=== PATIENT | male | born 1955 | race Caucasian/White ===

== ENCOUNTER 2022-03-16 08:58 | Outpatient (CLI) | payer BC, SELFPAY ==
[2022-03-16 09:45] LABS: Creatinine* 0.8 mg/dL (0.5-1.5); Estimated Glomerular Filt Rate 98 ml/min
--- NOTE | 2022-03-16 10:00 | CRLHL7_ITS ---
For Patients: As a result of the Century Cures Act, medical imaging exams and procedure reports are released immediately into your electronic medical record. You may view this report before your referring provider. If you have questions, please contact your health care provider. INDICATION: Recurrent left inguinal hernia. TECHNIQUE: CT abdomen and pelvis acquired with 99 cc Isovue 370 IV contrast. COMPARISON: CT chest, abdomen, and pelvis 08/14/2021. FINDINGS: Lower chest: Stable 4 mm pulmonary nodule in the peripheral lingula (series 3, image 10). Ground-glass attenuation and mild consolidation in posterior left lower lobe. Liver: Unremarkable. Normal in size and attenuation. No suspicious masses. Gallbladder and bile ducts: Unremarkable. No stones or inflammation. No biliary dilatation. Pancreas: Unremarkable. No mass or inflammation. Spleen: Unremarkable. Normal in size. No masses. Adrenal glands: Unremarkable. No nodules. Kidneys: Re-demonstration of ectopic and mildly dystrophic right kidney. No solid renal mass or hydronephrosis. No stones. Left renal cyst. Bladder is decompressed. GI tract: No colonic wall thickening or pericolonic fat stranding. Colonic diverticulosis with no evidence of acute diverticulitis. Appendix is normal. No small bowel dilation. No free fluid or free air. Vasculature: Aortoiliac atherosclerosis. No aneurysm. Mesenteric arteries are patent. Lymph nodes: No lymphadenopathy. Omentum/Peritoneum/Abdominal Wall: Unremarkable. No sign of mass or infiltration. No free air or significant free fluid. Pelvis: Small fat containing right inguinal hernia. Prostate is mildly enlarged. Left inguinal hernia containing segment of transverse colon. Bones: Unremarkable for age. IMPRESSION: 1. Left inguinal hernia containing short segment of colon. 2. Small fat containing right inguinal hernia. 3. Colonic diverticulosis with no evidence of acute diverticulitis. 4. Re-demonstration of the ectopic right kidney. 5. Mild ground-glass opacity and consolidation in the dependent left lower lobe most likely atelectasis although could represent early infiltrate. 6. Short interval stability in a 4 mm pulmonary nodule in the lingula. Please note that all CT scans at this facility use dose modulation, iterative reconstruction, and/or weight-based dosing when appropriate to reduce radiation dose to as low as reasonably achievable. Dictated by Blaise Gonzalez MD @ 03/16/2022 11:36:31 AM (Electronically Signed)
== END 2022-03-16 08:59 | disposition home or self-care (01) ==
LOC: CT 09:00
PROVIDERS: PCP Family Medicine; Visit Provider Surgery
DX: K40.91 Unilateral inguinal hernia, without obstruction or gangrene, recurrent (principal); K57.30 Diverticulosis of large intestine without perforation or abscess without bleeding; R91.1 Solitary pulmonary nodule
CPT/HCPCS: 36415; 74177; 82565; Q9967

== ENCOUNTER 2022-04-05 06:16 | Day surgery (SDC) | payer BC, SELFPAY ==
[2022-04-05] VITALS (16 sets, daily range): BP systolic 92–134; BP diastolic 66–88; PULSE 54–71; RESP 16–18; TEMP 36.4–36.8; O2SAT 92–97; BMI 24.7
[2022-04-05] MEDS: LACTATED RINGERS 1000 ML 1,000 ML 100 ML IV (06:30)
[2022-04-05] MEDS: SODIUM CHLORIDE 0.9 % (FLUSH) 10 ML SYRINGE IVF (06:56)
[2022-04-05] MEDS: CEFAZOLIN 2 GM INJ IVP (07:36)
[2022-04-05] MEDS: BUPIVACAINE 0.25% 30 ML INJECTION (08:45)
[2022-04-05] MEDS: BUPIVACAINE LIPOSOME 133 MG/10 ML INJ INFILTRATI (08:47)
--- NOTE | 2022-04-05 08:58 | PM.GSPRC ---
Operative Note Date of procedure: 04/05/22 Type of Procedure: 1. Open left inguinal hernia repair with mesh. Procedure Description: After discussing the risks and benefits of the procedure, the patient signed informed consent.? The operative site was marked and the patient was brought to the operating room and placed on the operating table in supine position.? Care was taken to pad the patient's pressure points.?? The patient was then intubated by anesthesia.?? The operative site was then prepped and draped in the usual sterile fashion.? A time-out was then performed. Surgical site was prepped and draped in sterile fashion. An oblique incision was made just above and medial to inguinal ligament through the previously well-healed surgical incision. Subcutaneous tissue was dissected to external obliques. Scar tissue was noted in subcutaneous fat. Small incision was made through the external oblique aponeurosis with scalpel. I then used Metzenbaum scissors to dissect under external obliques and extend my incision. Mosquito clamps were placed on the edges of external oblique exposing the inguinal floor. The left Ilioinguinal nerve was not identified. I then identified the spermatic cord and the hernia sac. I bluntly dissected subcutaneous tissues in order to place [place] drain around the cord structures. Cremasteric fibers were peeled off and dissected off the hernia sac and cord structures. There was evidence of direct inguinal hernia as well as indirect inguinal hernia. The hernia sac was from the spermatic cord bluntly and with cautery. The distal part of the indirect hernia sac was clamped and tied with a Vicryl tie. The proximal part of the hernia sac was then examined from the inside. Sigmoid epiploic fat was incarcerated in the hernia sac. This was reduced. A stitch using 3-0 Vicryl was placed near the base of the hernia sac through the sac and the hernia sac tied off. Hernia sac was then excised and sent to pathology. The cut edge of the hernia sac was then oversewn with 3-0 Vicryl suture. This was then pushed into preperitoneal space through the internal ring. Surgical field was examined for bleeding and hemostasis was achieved with cautery. A Bard mesh plug was inserted through the internal ring and secured to the adjacent tissues with interrupted 0-0 Neurolon sutures. A Bard mesh onlay was modified to make it slightly shorter and then used for hernia repair. The mesh onlay was sutured in place with interrupted 0-0 Neurolon sutures to the conjoint tendon medially and shelving edge laterally, pubic tubercle inferiorly. Simple interrupted sutures were placed using 0-0 Neurolon at the base of internal inguinal ring making it only large enough to fit a tip of one finger through. Spermatic cord was placed back into scrotum. [place] drain was removed. External oblique aponeurosis was closed with a running 3-0 Vicryl. Exparel was injected into subcutaneous tissues and external obliques. Kiley's fascia and subcutaneous tissue was re-approximated with interrupted Vicryl stitches. Skin incision was closed with 4-0 Monocryl subcuticular stitch. Steri strips and sterile dressing were applied over incision. All counts were correct at the end of the case. Patient tolerated this procedure well and was transferred to PACU in stable condition. Findings: Indirect and direct inguinal hernia noted. There was no presence of previous mesh. Implants: Mesh Anesthesia: GETA Surgeon: Aidan Smith MD Estimated blood loss (mL): 10 Condition: stable Disposition: PACU
--- NOTE | 2022-04-05 09:17 | W.ANESCHARGE ---
Anesthesia Charges Start Date/Time Anesthesia Start Date: 04/05/22 Anesthesia Start Time: 07:28 Stop Date/Time Anesthesia Stop Date: 04/05/22 Anesthesia Stop Time: 09:14 Summary Emergency: No
--- NOTE | 2022-04-05 09:32 | W.ANESCHARGE ---
Anesthesia Charges Start Date/Time Anesthesia Start Date: 04/05/22 Anesthesia Start Time: 07:28 Stop Date/Time Anesthesia Stop Date: 04/05/22 Anesthesia Stop Time: 09:14 Summary Emergency: No
[2022-04-05] MEDS: HYDROCODONE-ACETAMIN 5-325 MG 1 TAB PO (11:15)
== END 2022-04-05 11:40 | disposition home or self-care (01) ==
PROVIDERS: PCP Family Medicine; Visit Provider Surgery
PROC: (CPT 49507; principal; 2022-04-05 07:30)
DX: K40.30 Unilateral inguinal hernia, with obstruction, without gangrene, not specified as recurrent (principal)
CPT/HCPCS: 49507; 00830; 88302; A9270; C1781; C9290; J0330; J0690; J1100; J1170; J2250; J2405; J2704; J2710; J3010; J3490; J7120

== ENCOUNTER 2024-06-18 10:58 | Outpatient (CLI) | payer MEDICARE, SELFPAY | END 2024-06-18 10:59 | disposition home or self-care (01) | PROVIDERS: PCP Family Medicine; Visit Provider Family Medicine | DX: I10 Essential (primary) hypertension (principal); Z13.220 Encounter for screening for lipoid disorders; Z12.5 Encounter for screening for malignant neoplasm of prostate | CPT/HCPCS: 80048; 80061; 85025; G0103 ==

== ENCOUNTER 2024-06-25 08:45 | Outpatient (CLI) | payer MEDICARE, SELFPAY ==
--- NOTE | 2024-06-25 09:00 | CRLHL7_ITS ---
For Patients: As a result of the Century Cures Act, medical imaging exams and procedure reports are released immediately into your electronic medical record. You may view this report before your referring provider. If you have questions, please contact your health care provider. INDICATION: Lung cancer screening. History of smoking. High risk patient. TECHNIQUE: Low-dose lung cancer screening non-contrast CT chest. Dose reduction techniques were used. COMPARISON: 08/14/2021 FINDINGS: NODULES: Few unchanged small, sub 6 millimeter pulmonary nodules. Reeling Machine Setup Operator nodules include a 3 millimeter triangular middle lobe subpleural nodule (series 2, image 100) and a 3 millimeter triangular subpleural nodule in the inferior lingula (series 3, image 118) LUNGS AND PLEURA: Emphysema. MEDIASTINUM: Normal. CORONARY ARTERY CALCIFICATION: Present. LIMITED UPPER ABDOMEN: Normal. MUSCULOSKELETAL: Mild thoracic spondylosis. IMPRESSION: 1. Lung-RADS category 2. Benign. Based on imaging features or indolent behavior. 2. Management: Recommend annual screening with low-dose CT in 12 months Please note that all CT scans at this facility use dose modulation, iterative reconstruction, and/or weight-based dosing when appropriate to reduce radiation dose to as low as reasonably achievable. Dictated by Hema Gomez MD @ 06/25/2024 9:47:48 AM (Electronically Signed)
== END 2024-06-25 08:46 | disposition home or self-care (01) ==
LOC: CT 08:46
PROVIDERS: PCP Family Medicine; Visit Provider Family Medicine
DX: Z12.2 Encounter for screening for malignant neoplasm of respiratory organs (principal); Z87.891 Personal history of nicotine dependence; M47.894 Other spondylosis, thoracic region
CPT/HCPCS: 71271

== ENCOUNTER 2024-07-02 07:14 | Outpatient (CLI) | payer MEDICARE, SELFPAY ==
--- NOTE | 2024-07-02 08:18 | W.ANESCHARGE ---
Anesthesia Charges Start Date/Time Anesthesia Start Date: 07/02/24 Anesthesia Start Time: 08:00 Stop Date/Time Anesthesia Stop Date: 07/02/24 Anesthesia Stop Time: 08:15 Coding CPT Codes CPT Codes: ANES UPR GI NDSC PX NOS - 00908 ([id number]) P3 - PATIENT W/SEVERE SYS DISEASE, QX - MILLINER HELPER SVC W/ MD MED DIRECTION, QK - NITROGLYCERIN NEUTRALIZER 2-4 CNCRNT ANES PROC
--- NOTE | 2024-07-02 08:18 | P.ANES_ITS ---
Anesthesia Charges Start Date/Time Anesthesia Start Date: 07/02/24 Anesthesia Start Time: 08:00 Stop Date/Time Anesthesia Stop Date: 07/02/24 Anesthesia Stop Time: 08:15 Coding CPT Codes CPT Codes: ANES UPR GI NDSC PX NOS - 60547 ([id number]) P3 - PATIENT W/SEVERE SYS DISEASE, QX - DIGITAL MEASUREMENT ADVISOR SVC W/ MD MED DIRECTION, QK - MELANGEUR OPERATOR 2-4 CNCRNT ANES PROC
--- NOTE | 2024-07-02 09:27 | W.ANESCHARGE ---
Anesthesia Charges Start Date/Time Anesthesia Start Date: 07/02/24 Anesthesia Start Time: 08:00 Stop Date/Time Anesthesia Stop Date: 07/02/24 Anesthesia Stop Time: 08:15 Coding CPT Codes CPT Codes: ANES UPR GI NDSC PX NOS - 14863 ([id number]) QK - DEFENSIVE SECONDARY COACH 2-4 CNCRNT ANES PROC, QX - DIE TRY OUT WORKER SVC W/ MD MED DIRECTION, P3 - PATIENT W/SEVERE SYS DISEASE
--- NOTE | 2024-07-02 09:27 | P.ANES_ITS ---
Anesthesia Charges Start Date/Time Anesthesia Start Date: 07/02/24 Anesthesia Start Time: 08:00 Stop Date/Time Anesthesia Stop Date: 07/02/24 Anesthesia Stop Time: 08:15 Coding CPT Codes CPT Codes: ANES UPR GI NDSC PX NOS - [id number] ([id number]) QK - BAGGAGEMAN 2-4 CNCRNT ANES PROC, QX - BUDGET TECHNICIAN SVC W/ MD MED DIRECTION, P3 - PATIENT W/SEVERE SYS DISEASE
== END 2024-07-02 07:15 | disposition home or self-care (01) ==
LOC: OP CLINIC 07:15
PROVIDERS: PCP Family Medicine; Visit Provider Internal Medicine
DX: K21.9 Gastro-esophageal reflux disease without esophagitis (principal); K44.9 Diaphragmatic hernia without obstruction or gangrene
CPT/HCPCS: 00731; 43239; 88305; J2704; J3490

== ENCOUNTER 2024-09-11 10:00 | Outpatient (CLI) | payer MEDICARE, SELFPAY | END 2024-09-11 10:01 | disposition home or self-care (01) | PROVIDERS: PCP Family Medicine; Visit Provider Family Medicine | DX: R25.2 Cramp and spasm (principal) | CPT/HCPCS: 80048; 83735; 84443 ==